=== PATIENT | male | born 1940 | race Caucasian/White ===

== ENCOUNTER 2018-06-15 10:44 | Emergency (ER) | payer OTHER ==
[~2018-06-15] VITALS: Ht 172.7 cm; Wt 79.4 kg
[~2018-06-15 10:44] MED LIST: AMLODIPINE BESY10 M1 PO; ASPIRIN81 M4 PO; ATORVASTATIN CA80 M1 PO; CARVEDILOL3.125 M1 PO; COUMADIN2.5 M1 PO; ENTRESTO 49 MG1 EACH PO; FINASTERIDE5 MG PO; FLEXERIL 10MG (10 MG PO; FLOMAX(MONOGRA0.4 MG PO; FOLIC ACID1 M1 PO; FUROSEMIDE20 M1 PO; LISINOPRIL10 MG PO; LOSARTAN POTASS1 TA2 PO; PROAIR HFA8.5 GM INH; VITAMIN C500 M7 PO; WARFARIN SODIU2.5 MG PO; ZETIA10 M1 PO
[2018-06-15 10:55] VITALS: BP 129/53
[2018-06-15 12:30] LABS: ABSOLUTE BASOPHIL COUNT 0 /CUMM (0.0-0.2); ABSOLUTE EOSINOPHIL COUNT 0.1 /CUMM (0.0-0.7); ABSOLUTE GRANULOCYTE CT 8.3 /CUMM (1.4-6.5); ABSOLUTE LYMPH COUNT 0.6 /CUMM (1.2-3.4); BASOPHIL % 0.2 % (0.0-2.0); EOSINOPHIL % 1.2 % (0-5); GRANULOCYTE % 81.9 % (42.2-75.2); HEMATOCRIT 32.7 % (42-52); MEAN CORPUSCULAR HGB 30.8 PG (27.0-31.0); MEAN CORPUSCULAR HGB CONC 34.3 G/DL (33.0-37.0); MEAN CORPUSCULAR VOLUME 89.7 FL (80.0-94.0); MEAN PLATELET VOLUME 7.9 FL (7.4-10.4); PLATELET COUNT 191 /CUMM (130-400); RBC DISTRIBUTION WIDTH 14.6 % (11.5-14.5); RED BLOOD CELL CT 3.65 /CUMM (4.70-6.10); WHITE BLOOD CELL COUNT 10.2 /CUMM (4.8-10.8)
[2018-06-15] MEDS ORDERED: FERROUS SULFAT325 M3 PO (12:42)
--- NOTE | 2018-06-15 13:52 | ED GENERAL ADULT ---
History of Present Illness General Chief Complaint: Dyspnea (COPD, CHF, Other) Stated [facility] Source: patient Exam Limitations: no limitations Vital Signs & Intake/Output Vital Signs & Intake/Output Vital Signs Date Time Temp Pulse Resp B/P B/P Pulse O2 O2 Flow FiO2 Mean Ox Delivery Rate 06/15 1055 96.4 74 20 129/53 95 Room Air Allergies Coded Allergies: NO KNOWN ALLERGIES (10/27/14) Reconcile Medications Amlodipine Besylate 10 MG TABLET 1 TAB PO DAILY HEART (Reported) Ascorbic Acid (Vitamin C) 500 MG CAPSULE.ER 1 CAP PO DAILY VITAMIN SUPPORT ( Reported) Aspirin (Aspirin*) 81 MG TAB.CHEW 1 TAB PO DAILY HEART HEALTH (Reported) Atorvastatin Calcium 80 MG TABLET 1 TAB PO DAILY CHOLESTEROL (Reported) Carvedilol 3.125 MG TABLET 1 TAB PO BID HEART (Reported) Ezetimibe (Zetia) 10 MG TABLET 1 TAB PO DAILY CHOLESTEROL (Reported) Ferrous Sulfate 325 MG (65 MG IRON) TABLET 1 TAB PO BID IRON, VITAMIN ( Reported) Folic Acid 1 MG TABLET 1 TAB PO DAILY VITAMIN SUPPORT (Reported) Furosemide 20 MG TABLET 1 TAB PO DAILY WATER PILL (Reported) Sacubitril/Valsartan (Entresto 49 MG-51 MG Tablet) 49 MG-51 MG TABLET 1 TAB PO BID HEART (Reported) Warfarin Sodium (Coumadin) 2.5 MG TABLET 0.5 TAB PO MoTuThFrSa Blood Thinner (Reported) Triage Note: PT SENT TO ED BY CARDIAC REHAB NURSE FOR SOB AFTER EXERCISING. PT WAS NOT IN CARDIAC REHAB BUT WAS EXERCISING IN THE GYM AT CARDIAC REHAB. PT CURRENTLY DENIES ANY PAIN, C/P OR SOB. ALSO C/O LOWER ABD PAIN WITH DIARRHEA THIS AM. DENIES N/V OR S/S. STATES PT LOOKS PALE. HAD INR CHECKED TODAY IT WAS 4.2. Triage Nurses Notes Reviewed? yes HPI: 77 y/o male w/ SOB while exercising at cardiac rehab gym. He does have a cardiac history and is a "graduate" of the same cardiac rehabilitation gym where he was exercising today. He was transported in by private vehicle, and from the moment he stopped exercising he had no dyspnea, and denies ever having had chest pain today. He is very well-appearing upon my initial encounter, denying any symptoms and questing discharge. Past History Travel History Traveled to [place] past 21 day No Medical History Any Pertinent Medical History? see below for history Neurological: CVA (Coumadin) EENT: NONE Cardiovascular: CHF, hypertension, hyperlipidemia Respiratory: NONE Gastrointestinal: NONE Hepatic: NONE Renal: NONE Musculoskeletal: NONE Psychiatric: NONE Endocrine: NONE Blood Disorders: NONE Cancer(s): NONE [employer] ENG[employer]ER/Reproductive: NONE History of MRSA: No History of VRE: No History of CDIFF: No Tetanus Vaccine: 06/05/14 Surgical History Surgical History: non-contributory Psychosocial History Who do you live with Spouse What is your primary language Romansh Tobacco Use: Quit >30 days ago ETOH Use: denies use Illicit Drug Use: denies illicit drug use Family History Family History, If Any: FATHER CVA Hx Contributory? No Review of Systems Review of Systems Constitutional: Reports: see HPI. EENTM: Reports: no symptoms. Respiratory: Reports: short of breath. Cardiovascular: Denies: chest pain. GI: Reports: no symptoms. Genitourinary: Reports: no symptoms. Musculoskeletal: Reports: no symptoms. Skin: Reports: no symptoms. Neurological/Psychological: Reports: no symptoms. Hematologic/Endocrine: Reports: no symptoms. All Other Systems: Reviewed and Negative Physical Exam Physical Exam General Appearance: well developed/nourished, no apparent distress, alert, awake , comfortable Comments: HEENT: Inspection of the head reveals a normocephalic cranium with no signs of trauma. Ophtho: Extraocular muscles are intact and pupils are equal and reactive to light bilaterally with no afferent pupillary defect. The sclera are noninjected , and there is no obvious discharge. Neck: The trachea is midline, there is no obvious asymmetry or mass over the thyroid, and there is no midline cervical spine tenderness Respiratory: The lungs are clear and equal to auscultation bilaterally without wheezes, rales, or rhonchi. The patient exhibits no signs of labored breathing. Cardiac: Regular rhythm and non-tachycardic without appreciable murmurs on auscultation. No obvious JVD. GI: Examination of the abdomen reveals no significant focal tenderness in any of the four quadrants. There is negative Smith's sign, negative McBurney's point tenderness, negative Evan sign, negative Miguel-Boone sign, and no signs of peritonitis whatsoever on percussion or deep palpation. The skin is intact with no sign of trauma or infection. : Deferred Neuro: The patient is oriented to person, place, time, and situation, with no obvious focal motor deficits. There were no sensory deficits, and the patient exhibit purposeful movement of all 4 extremities. Cranial nerves II through XII are intact, and gait is normal. Behavioral: Calm and cooperative Dermatologic: Dermatologic examination reveals no diffuse rashes or exanthems, no petechiae, no ecchymoses, and no other signs of erythema or infection. Core Measures ACS in differential dx? Yes CVA/TIA Diagnosis: No Sepsis Present: No Sepsis Focused Exam Completed? No Progress Differential Diagnoses I considered the following diagnoses in my evaluation of the patient: CHF, ACS, A. fib, pneumothorax, PE, pneumonia, angina, among multiple other cardiopulmonary possibilities. Plan of Care: Orders Procedure Date/time Status XRY-CHEST XRAY, TWO VIEWS 06/15 1140 Active TROPONIN LEVEL 06/15 1140 Complete CBC WITHOUT DIFFERENTIAL 06/15 1140 Complete BASIC METABOLIC PANEL 06/15 1140 Complete EKG 06/15 1140 Active Laboratory Tests 06/15/18 1211: Anion Gap 13, Estimated GFR 31 L, BUN/Creatinine Ratio 19.0, Glucose 94, Calcium 8.7, Troponin I 0.04, CBC w Diff NO MAN DIFF REQ, RBC 3.65 L, MCV 89.7, MCH 30.8, MCHC 34.3, RDW 14.6 H, MPV 7.9, Gran % 81.9 H, Lymphocytes % 6.4 L, Monocytes % 10.3 H, Eosinophils % 1.2, Basophils % 0.2, Absolute Granulocytes 8.3 H, Absolute Lymphocytes 0.6 L, Absolute Monocytes 1.0 H, Absolute Eosinophils 0.1, Absolute Basophils 0 CXR Impression: no acute abnormality, no infiltrates, normal size heart Initial ED EKG: ECG performed at 11:59 AM read by me at 12:08 PM shows normal sinus rhythm at 64 bpm, TX interval of 204 ms, normal QRS and QTc intervals, Q waves in room 3 more pronounced than prior, pseudonormalization of prior biphasic T waves in V2, otherwise no interval ischemic changes as compared to prior study dated 04/04/2016 Comments: Patient presented today for dyspnea. He has cardiac history, but currently feels well, and states that his symptoms were fleeting. Furthermore, he never had chest pain. We did obtain a chest x-ray, ECG, and laboratory studies were unremarkable. I offered hospitalization for cardiac observation and cardiology consultation, but the patient declined after a full discussion of the risks and benefits. He instead chose discharge home with outpatient follow-up at his cardiology in PCP offices. I feel that he is well within his right to make this decision and exhibits good understanding of the risks involved. His agrees , and he was discharged home in stable condition. Departure Departure Time of Disposition: 1399 Disposition: HOME OR SELF CARE Condition: Stable Clinical Impression Primary Impression: Shortness of breath Referrals: Steffen Cheng MD (PCP/Family) Additional Instructions: Your evaluation in the emergency department today was reassuring. 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 As always, return to the emergency department for any new or worsening symptoms that develop. Departure Forms: Customer Survey General Discharge Information Critical Care Note Critical Care Note Critical Care Time: non-applicable
--- NOTE | 2018-06-15 14:28 | RADIOLOGY REPORT ---
EXAMINATION: XR CHEST CLINICAL INFORMATION: Shortness of breath. COMPARISON: 08/21/2016 TECHNIQUE: 2 views of the chest were obtained. FINDINGS: The lungs are hypoinflated with crowding of the bronchovascular structures. No focal consolidation, pleural effusion or pneumothorax. Atherosclerosis and minimal tortuosity thoracic aorta. The cardiomediastinal silhouette is unchanged. Degenerative changes of the spine. IMPRESSION: No acute pulmonary process.
== END 2018-06-15 14:15 ==
LOC: ERH 10:44
PROVIDERS: Emergency Medicine
DX: R06.02 Shortness of breath (principal)
CPT/HCPCS: 71046; 93005; 93010